=== PATIENT | male | born 1930 | race Caucasian/White ===

== ENCOUNTER 2016-07-02 14:20 | Emergency (ER) | payer MEDICARE, OTHER ==
[~2016-07-02] VITALS: Ht 170.2 cm; Wt 88.6 kg
[2016-07-02 14:27] VITALS: BP 146/62; PULSE 94; RESP 20; O2SAT 91
--- NOTE | 2016-07-02 14:52 | ED.REPORT ---
HPI-General Illness Date of Service Jul 02, 2016 ED Provider: Dewayne Harris MD Pt is an 85 y/o male anticoagulated on Warfarin presenting to the ED via EMS c/ o rapid palpitations onset 0900 today. The patient was laying down watching TV during the onset of his palpitations. His symptoms lasted about 2 hours and have now resolved. He denies CP, lightheadedness, SOB, N/V/D, fever, chills, focal numbness or weakness. He has no history of similar symptoms. He believes he may have a history of atrial fibrillation but this is unclear. PCP: [facility] Notes Stated Complaint: RAPID HEART RATE Chief Complaint: Dysrhythmia/Cardiac Nursing Notes Reviewed: Yes Allergies: Coded Allergies: No Known Allergies (Unverified , 07/02/16) General Time Seen by MD: 14:24 Chief Complaint Other (Rapid palpitations) Hx Obtained From: Patient, EMS Arrived By: Ambulance Sudden in Onset?: No Onset Occurred: 5 - 8 hours ago Symptom Duration: Since onset Severity: Current: No pain currently Severity: Maximum: No pain Similar Sx Previous: No Past Medical History Past Medical History Possible atrial fibrillation - patient does not know if this is 100% sure Anticoagulated on Warfarin Past Surgical History None reported Smoking History Unknown if Ever Smoker Ambulatory Status Independent Review of Systems Full Review of Systems Constitutional: Denies: Chills, Fever Respiratory: Denies: Non-productive cough, Shortness of breath Cardiovascular: Reports: Palpitations, Denies: Chest pain GI: Denies: Abdominal pain, Diarrhea, Nausea, Vomiting Neurologic: Denies: Focal weakness, Headache, Lightheaded, Numbness Complete sys rev & neg: except as marked. Physical Exam Vital Signs Vital Signs Date Time Temp Pulse Resp B/P Pulse Ox O2 Delivery O2 Flow Rate FiO2 07/02/16 16:40 90 20 132/60 94 Room Air 07/02/16 14:27 36.8 94 20 146/62 91 Room Air Initial VS: Reviewed, Vital signs normal Head / Eyes: Atraumatic, Normocephalic, PERRL ENT: Mucous membranes moist, Conjunctiva normal, No scleral icterus Neck: Supple, Full range of motion Respiratory: Breath sounds normal, Clear to auscultation, No respiratory distress Cardiovascular: Regular rate & rhythm, Heart sounds normal, Intact distal pulses Abdomen / GI: Soft, Non-tender, No guarding, No rebound, No distention Extremities: Vascular intact, Neuro intact, No swelling, No tenderness Skin: Warm, Dry, No cyanosis Neurologic: Alert, Oriented, Nonfocal Psychiatric: Mood/affect normal, Behavior normal, Normal thought content General/Constitutional: Awake, Alert, No acute distress, Well appearing, Cooperative, Not toxic appearing Interpretation & Diagnostics Lab Results Interpretation Result Diagram: 07/02/16 1526 07/02/16 1526 Test 07/02/16 15:26 White Blood Count 8.0th/mm3 (3.8-10.1) Red Blood Count 5.37mil/mm3 (4.40-5.80) Hemoglobin 15.6g/dL (13.8-17.2) Hematocrit 46.6% (41.0-50.0) Mean Corpuscular Volume 86.8fL (81-100) Mean Corpuscular Hemoglobin 29.1pg (27.0-35.0) Mean Corpuscular Hemoglobin Concent 33.5% (32.0-37.0) Red Cell Distribution Width 14.9% (12.3-15.4) Platelet Count 215bil/L (150-400) Neutrophils (%) (Auto) 66.1% (40-74) Lymphocytes (%) (Auto) 14.1% (14-46) Monocytes (%) (Auto) 16.9% (4-12) Eosinophils (%) (Auto) 2.0% (0-5) Basophils (%) (Auto) 0.6% (0-3) Prothrombin Time 15.4sec (8.1-12.5) Prothromb Time International Ratio 1.43ratio Sodium Level 139mEq/L (134-144) Potassium Level 4.0mEq/L (3.5-5.2) Chloride Level 101mEq/L (97-108) Carbon Dioxide Level 21mmol/L (18-29) Blood Urea Nitrogen 13mg/dL (8-27) Creatinine 0.86mg/dL (0.76-1.27) Estimat Glomerular Filtration Rate 90mL/min (>59) Glucose Level 124mg/dL (60-99) Calcium Level 8.7mg/dL (8.5-10.1) Magnesium Level 2.1mg/dL (1.6-2.6) Total Bilirubin 0.3mg/dL (0.0-1.2) Aspartate Amino Transf (AST/SGOT) 27U/L (0-50) Alanine Aminotransferase (ALT/SGPT) 23U/L (0-44) Alkaline Phosphatase 88U/L (25-160) Troponin T < 0.010ug/L (0.0-0.011) Total Protein 7.6g/dL (6.4-8.4) Albumin 4.2g/dL (3.4-5.0) Hold [place] Top Tube Received (Received) ECG Interpretation ECG Interpretation: Sinus rhythm rate 90 LAD No prior available for comparison Time: 15:03 Interpreted by: ED physician Normal ECG Interpretation: No acute ischemic changes X-Ray Chest Interpretation Chest Xray Interpretation: IMPRESSION: No acute cardiopulmonary findings. Dictated by: Marsha Fitzgerald M.D. on 07/02/2016 at 15:24 Approved by: Marsha Fitzgerald M.D. on 07/02/2016 at 15:25 View: Portable, 1 view Interpretation / Wet Read by: Interpret - Radiologist Re-Eval/Medical Decision Med Decision/Clinical Course Pt is an 85 y/o male anticoagulated on Warfarin presenting to the ED via EMS c/ o rapid palpitations onset 0900 today. The patient was laying down watching TV during the onset of his palpitations. His symptoms lasted about 2 hours and have now resolved. He denies CP, lightheadedness, SOB, N/V/D, fever, chills, focal numbness or weakness. He initially denies any history of atrial fibrillation but when asked why he takes Coumadin he states "oh maybe because I have atrial fibrillation, I cannot quite remember but that sounds familiar". EKG was obtained as above and demonstrated that the patient is in sinus rhythm. Here in the emergency department he denies any ongoing symptoms. Labs notable as below: CBC: unremarkable CMP: unremarkable Troponin: negative INR: subtherapeutic Presentation unclear at this time. He reports sensation of arrhythmia/racing heart though never experienced any concerning symptoms of chest pain, shortness of breath or lightheadedness that would be suggestive of a non-perfusing arrhythmia such as ventricular tachycardia or ventricular fibrillation. I suspect the patient may have entered atrial fibrillation with RVR and I also suspect that he has a history of atrial fibrillation given that he is on Coumadin. Of note his INR was subtherapeutic at 1.4. The patient will follow this up with his primary care physician and just his Coumadin dose accordingly. Nothing in his presentation today is suggestive of acute coronary syndrome and initial screening EKG and troponin are negative. I do not feel that further ACS workup is immediately indicated. He has no signs or symptoms suggestive of pulmonary embolism and physical exam reveals no findings suggestive of DVT. The patient is currently stable, asymptomatic and well- appearing. He would like to be discharged home. Follow-up and return precautions were reviewed in detail he was discharged in stable condition. Time of Eval: 16:21 Re-Evaluation/Progress Note: Pt rechecked. Informed pt of plan for treatment. Pt understands and agrees with plan for treatment. F/U instructions and RTER warnings given. All questions addressed. Counseled Regarding: Diagnosis, Lab results, Need for follow-up, When/why to return to ED Discharge & Departure Primary Impression: Palpitations Additional Impressions: Paroxysmal atrial fibrillation Subtherapeutic international normalized ratio (INR) Disposition: Home Discharge Condition All VS Reviewed: Yes Condition: Stable Patient Instructions: Palpitations (ED) Additional Instructions: Thank you for seeking care at the emergency room. It is difficult for us to make definitive diagnoses in the ED but we believe that you are experiencing palpitations which were likely caused by atrial fibrillation. Our primary goal today in the ED was to evaluate you for any life-threatening conditions. Your evaluation was reassuring. Your INR level today was subtherapeutic at 1.43, you should call your primary care doctor tomorrow to have your Coumadin dose adjusted. You should return to the ED immediately if you develop chest pain, lightheadedness, vomiting, trouble breathing, persistent palpitations, severe fatigue, or any other concerning signs or symptoms. Thank you for letting us partake in your care today. Referrals: Chuy Cornell DO (PCP) Siobhan Attestation Portions of this note were transcribed by Zbigniew Weems. I, Dr. Harris personally performed the history, physical exam and medical decision-making; I reviewed and confirmed the accuracy of the information in the transcribed note. Signed by Siobhan Morton, 07/02/16 - [id number] copies to: Chuy Cornell Beck O MD Jul 02, 2016 14:52 ZBIGNIEW WEEMS Jul 02, 2016 15:14
--- NOTE | 2016-07-02 15:27 | DRSVH ---
PROCEDURE: X-RAY CHEST ONE VIEW, PORTABLE ([id number]) INDICATIONS: CHEST PAIN TECHNIQUE: One view of the chest was acquired. COMPARISON: None. FINDINGS: Surgical changes and devices: None. Lungs and pleura: No pleural effusions or pneumothorax. Lungs are clear. Mediastinum: Mediastinal contours appear normal. Heart size is normal. Bones and chest wall: No suspicious bony lesions. Overlying soft tissues appear unremarkable. IMPRESSION: No acute cardiopulmonary findings. Dictated by: Marsha Fitzgerald M.D. on 07/02/2016 at 15:24 Approved by: Marsha Fitzgerald M.D. on 07/02/2016 at 15:25
[2016-07-02 15:36] LABS: BASOPHILS % (AUTO) 0.6 % (0-3); MONOCYTES % (AUTO) 16.9 % (4-12); Mean Corpuscular Hemoglobin 29.1 pg (27.0-35.0); Mean Corpuscular Volume 86.8 fL (81-100); NEUTROPHILS % (AUTO) 66.1 % (40-74); Platelet Count 215 bil/L (150-400)
[2016-07-02 15:51] LABS: INR 1.43 ratio
[2016-07-02 15:58] LABS: TROPONIN T < 0.010 ug/L (0.0-0.011)
[2016-07-02 16:09] LABS: Magnesium 2.1 mg/dL (1.6-2.6)
[2016-07-02 16:40] VITALS: BP 132/60; PULSE 90; RESP 20; O2SAT 94
== END 2016-07-02 16:41 | disposition home or self-care (01) ==
LOC: SED 14:20
DX: R00.2 Palpitations (principal); I48.0 Paroxysmal atrial fibrillation; R79.1 Abnormal coagulation profile; Z79.01 Long term (current) use of anticoagulants